=== PATIENT | male | born 1980 | race Two or more races ===

== ENCOUNTER 2018-10-09 14:54 | Emergency (ER) | payer MEDICAID ==
[2018-10-09 15:34] VITALS: TEMP 98.7
--- NOTE | 2018-10-09 15:52 | C.PDOC ---
History Of Present Illness Patient is a 38 male who presents to the ED c/o toothache in the left lower jaw that began a few days ago. Patient admits to poor dental hygiene and states that he was supposed to have a tooth removed along with a root canal, but never followed up. He also admits to dental abscesses in the past. Patient states that he came here to get antibiotics and may have had a fever last night, but none right now. He states that he plans to go to a clinic in [place]. Time Seen by Provider: 10/09/18 15:47 Chief Complaint (Nursing): Dental Pain History Per: Patient History/Exam Limitations: no limitations Onset/Duration Of Symptoms: Days Current Symptoms Are (Timing): Still Present Quality: Positive for: "Pain" Recent travel outside of the [place]: No Additional History Per: Patient Past Medical History Reviewed: Historical Data, Nursing Documentation, Vital Signs Vital Signs: Last Vital Signs Temp 98.7 F 10/09/18 15:29 Pulse Resp BP Pulse Ox Primary Care Provider: FAMILY PROVIDER,NO - Medical History PMH: No Chronic Diseases Surgical History: No Surg Hx Family History: States: No Known Family Hx - Social History Hx Tobacco Use: Yes Hx Alcohol Use: No Hx Substance Use: Yes (marijuana) - Immunization History Hx Tetanus Toxoid Vaccination: No Hx Influenza Vaccination: No Hx Pneumococcal Vaccination: No Review Of Systems Except As Marked, All Systems Reviewed And Found Negative. ENT: Positive for: Other (toothache in left lower jaw). Negative for: Mouth Swelling Physical Exam - Physical Exam Appears: Well, Non-toxic, No Acute Distress Skin: Warm, Dry Head: Atraumatic, Normacephalic, No Swelling Eye(s): bilateral: Normal Inspection Oral Mucosa: Moist Tongue: Normal Appearing Lips: Normal Appearing Teeth: Caries, Other (Poor dentition, 1st left lower molar cracked with soft tissue swelling of gum and actively draining scant amount of pus ) Throat: Normal, No Erythema, No Exudate Neck: Normal ROM, Supple Lymphatic: No Adenopathy (cervical ) Chest: Symmetrical Respiratory: Other (Respirations with regular rate and rhythm.) Extremity: Normal ROM Neurological/Psych: Oriented x3, Normal Speech, Normal Cognition Medical Decision Making Medical Decision Making: Plan: Amoxil 500mg PO Motrin 800mg PO UX ENGINEER was checked. No significant findings for narcotics. 10/09/18 1616 Patient with dental abscess, afebrile and well appearing, nontoxic. Will treat with PO antibiotics and ibuprofen. Patient has plans to go to a dental clinic. Will return if symptoms worsen or persist, develops facial swelling, increased pain or fevers. Disposition Counseled Patient/Family Regarding: Diagnosis, Need For Followup, Rx Given - Disposition [facility]: [facility] [Outside] Disposition: HOME/ ROUTINE Disposition Time: 16:17 Condition: GOOD Additional Instructions: Follow-up with PMD and dentist. Return if symptoms worsen or persist. Prescriptions: Ibuprofen [Motrin Tab] 800 mg PO TID #20 tab Penicillin VK [Penicillin VK Tab] 0 mg PO TID 10 Days #30 tab Penicillin VK [Penicillin VK Tab] 500 mg PO TID 10 Days #30 tab Instructions: Tooth Abscess (DC) Forms: General Discharge Instructions, [facility] ([place] Zealander) Print Language: CAMEROONIAN - Clinical Impression Clinical Impression: Dental abscess - PA / REGISTERED NURSE PRACTITIONER / Resident Statement MD/DO has reviewed & agrees with the documentation as recorded. - Scribe Statement The provider has reviewed the documentation as recorded by the Adelita Chirinos All medical record entries made by the Adelita were at my direction and personally dictated by me. I have reviewed the chart and agree that the record accurately reflects my personal performance of the history, physical exam, medical decision making, and the department course for this patient. I have also personally directed, reviewed, and agree with the discharge instructions and disposition.
[2018-10-09 15:59] VITALS: BP 158/87; PULSE 60; RESP 20; O2SAT 99
== END 2018-10-09 16:43 | disposition home or self-care (01) ==
LOC: C.ER 14:54
DX: K04.7 Periapical abscess without sinus (principal)